=== PATIENT | female | born 1960 | race Caucasian/White ===

== ENCOUNTER 2018-05-04 04:14 | Emergency (ER) | payer MEDICARE ==
[~2018-05-04] VITALS: Ht 162.6 cm; Wt 96.6 kg
[2018-05-04 04:17] VITALS: Ht 162.6 cm; Wt 96.6 kg
[2018-05-04] MEDS ORDERED: AMITIZA24 MCG PO (04:22)
[2018-05-04] MEDS ORDERED: ALENDRONATE SOD70 MG PO (04:22)
[2018-05-04] MEDS ORDERED: CYMBALTA30 MG PO (04:23)
[2018-05-04] MEDS ORDERED: CARAFATE1 G PO (04:23)
[2018-05-04] MEDS ORDERED: BACLOFEN10 MG PO (04:23)
[2018-05-04] MEDS ORDERED: BENTYL10 MG PO (04:24)
[2018-05-04] MEDS ORDERED: EFFEXOR37.5 MG PO (04:24)
[2018-05-04] MEDS ORDERED: XYZAL5 MG PO (04:25)
[2018-05-04] MEDS ORDERED: LASIX40 MG PO (04:25)
[2018-05-04] MEDS ORDERED: ZESTORETIC 20/21 TAB PO (04:25)
[2018-05-04] MEDS ORDERED: MECLIZINE HCL25 MG PO (04:26)
[2018-05-04] MEDS ORDERED: MOBIC7.5 MG PO (04:26)
[2018-05-04] MEDS ORDERED: OMEPRAZOLE40 MG PO (04:27)
[2018-05-04] MEDS ORDERED: NORCO 7.5/325 T1 TA1 PO (04:27)
[2018-05-04] MEDS ORDERED: PAXIL40 MG PO (04:28)
[2018-05-04] MEDS ORDERED: K-DUR20 MEQ PO (04:28)
[2018-05-04] MEDS ORDERED: CATAPRES0.1 MG PO (04:29)
[2018-05-04] MEDS ORDERED: LAMISIL250 MG PO (04:29)
[2018-05-04 04:59] LABS: APPEARANCE CLEAR (CLEAR); BILIRUBIN NEGATIVE (NEGATIVE); COLOR YELLOW (YELLOW); GLUCOSE NEGATIVE (NEGATIVE); KETONE NEGATIVE (NEGATIVE); NITRITE NEGATIVE (NEGATIVE); PROTEIN NEGATIVE (NEGATIVE); UROBILINOGEN NORMAL (NORMAL)
[2018-05-04 05:00] LABS: BASOPHILS 0.2 % (0-2); HEMATOCRIT 42.1 % (36.0-48.0); HEMOGLOBIN 14.5 g/dL (12-16); IMMATURE GRANULOCYTES 0.2 % (0-5); MCH 29.3 pg (26.0-34.0); MCHC 34.4 g/dL (31.0-37.0); MCV 85.1 fL (80.0-100.0); MEAN PLATELET VOLUME 10.4 fL (7.4-10.4); MONOCYTES 9.3 % (2-11); NEUTROPHILS 49.3 % (40-80); PLATELET COUNT 252 10x3/uL (130-400); RBC 4.95 10x6/uL (4.00-5.40); RDW 13.1 % (11.5-14.5); WBC 8.6 10x3/uL (4.8-10.8)
[2018-05-04 05:13] LABS: BACTERIA FEW /hpf (NONE SEEN); EPITHELIAL CELLS 0-5 /hpf (0-5); HYALINE CAST OCC /lpf (NONE SEEN); RED CELLS - URINE RARE /hpf (0-5); WHITE CELLS - URINE 0-5 /hpf (0-5)
[2018-05-04 05:16] LABS: APTT 32.5 SECONDS (22.8-39.4); INR 0.96 (0.85-1.17); PROTIME 12.4 SECONDS (11.6-15.0)
[2018-05-04 05:17] LABS: D-DIMER-QUANTITATIVE 3.1 ug/mLFEU (0.20-0.54)
[2018-05-04 05:18] LABS: ALBUMIN 4.3 g/dL (3.4-5.0); ALKALINE PHOSPHATASE 83 U/L (46-116); ALT (SGPT) 25 U/L (10-68); BILIRUBIN - TOTAL 0.39 mg/dL (0.2-1.3); CALC OSMOLALITY 275 mosm/kg (275-300); CALCIUM 10.1 mg/dL (8.5-10.1); CARBON DIOXIDE 31.9 mmol/L (21.0-32.0); CHLORIDE - SERUM 95 mmol/L (98-107); CREATININE - SERUM 1.4 mg/dL (0.6-1.3); GLUCOSE 105 mg/dL (74-106); POTASSIUM - SERUM 3.4 mmol/L (3.5-5.1); PROTEIN - SERUM 8.4 g/dL (6.4-8.2); SODIUM 135 mmol/L (136-145); UREA NITROGEN 28 mg/dL (7-18); eGFR NON AFRICAN AMERICAN 41 mL/min (90-120)
[2018-05-04 05:30] LABS: AMYLASE - SERUM 75 U/L (25-115); CKMB 3.2 U/L (0.0-3.6); CREATINE KINASE 262 UL (21-215); LIPASE 245 U/L (73-393)
[2018-05-04 05:37] LABS: TROPONIN-I < 0.017 ng/mL (0.000-0.060)
[2018-05-04] MEDS ORDERED: PROTONIX40 MG PO (09:33)
[2018-05-04 10:10] VITALS: BP 147/77
== END 2018-05-04 10:10 | disposition home or self-care (01) ==
LOC: D.ER 04:14
PROVIDERS: Family Medicine
DX: R10.9 Unspecified abdominal pain (principal); K21.9 Gastro-esophageal reflux disease without esophagitis; E11.9 Type 2 diabetes mellitus without complications